=== PATIENT | male | born 1995 | race Caucasian/White ===

== ENCOUNTER 2020-04-09 06:24 | Day surgery (SDC) | payer OTHER ==
[~2020-04-09] VITALS: Ht 177.8 cm; Wt 94.8 kg
[2020-04-09] MEDS ORDERED: LR 1,000 ML IV ONE (07:00)
[2020-04-09] MEDS ORDERED: CIPRODEX OTIC SUSP 7.5ML As Ordered ONE (08:12)
[2020-04-09] MEDS ORDERED: LIDOCAINE W/EPINEPHRINE 1% 20ML VIAL As Ordered ONE (08:13)
[2020-04-09] MEDS ORDERED: EPINEPHrine 1MG/ML INJ 30ML MD-VIAL As Ordered ONE (08:13)
[2020-04-09] MEDS ORDERED: METHYLENE BLUE 0.5% (5MG/ML) 10 ML AMP (PROVAYBLUE) As Ordered ONE (08:13)
[2020-04-09] MEDS ORDERED: fentaNYL 250 MCG/5 ML INJECTION (J3010) As Ordered ONE (08:26)
[2020-04-09] MEDS ORDERED: ROCURONIUM BROMIDE 50 MG/5 ML VIAL As Ordered ONE (08:26)
[2020-04-09] MEDS ORDERED: MIDAZOLAM INJ 2MG/2ML VIAL (J2250 PER 1MG) As Ordered ONE (08:26)
[2020-04-09] MEDS ORDERED: propofoL 200 MG/20 ML VIAL As Ordered ONE (08:26)
[2020-04-09] MEDS ORDERED: dexameTHASONE 4 MG/ML 1ML VIAL (J1100 PER 1MG) As Ordered ONE (08:26)
[2020-04-09] MEDS ORDERED: LIDOCAINE 2% 100MG/5ML SDV (FOR ANES.) As Ordered ONE (08:26)
[2020-04-09] MEDS ORDERED: ACETAMINOPHEN 1000MG 100ML IV BTL (OFIRMEV) (J0131 PER 10MG) As Ordered ONE (09:26)
[2020-04-09] MEDS ORDERED: SUGAMMADEX SODIUM 500 MG/5 ML VIAL (BRIDION) As Ordered ONE (09:26)
[2020-04-09] MEDS ORDERED: ePHEDrine SULFATE 25 MG/5 ML(5MG/ML) SYRINGE As Ordered ONE (09:27)
[2020-04-09] MEDS ORDERED: HYDROmorphone HCL 2 MG/ML 1ML VIAL (J1170) As Ordered ONE (09:48)
[2020-04-09] MEDS ORDERED: KETOROLAC 60MG 2ML VIAL As Ordered ONE (09:52)
[2020-04-09] MEDS ORDERED: oxyCODONE 5MG TAB PO PRN (11:00)
[2020-04-09] MEDS ORDERED: ONDANSETRON 4MG/2ML VIAL IV PRN (11:00)
[2020-04-09] MEDS ORDERED: ACETAMINOPH W/CODEINE #3 TAB UD PO PRN (11:00)
[2020-04-09] MEDS ORDERED: LR 1,000 ML IV SCH ×2 (11:00)
[2020-04-09] MEDS: fentaNYL 100 MCG/2 ML INJECTION (J3010) IV PRN ×2 (11:29→11:34)
--- NOTE | 2020-04-09 11:29 | RO ---
OPERATIVE NOTE DATE OF OPERATION: 04/09/2020 PREOPERATIVE DIAGNOSIS: Chronic right tympanic membrane perforation. POSTOPERATIVE DIAGNOSIS: Chronic right tympanic membrane perforation. OPERATIVE PROCEDURE: Right tympanoplasty. FINDINGS: There was a moderate sized anterior perforation of the right tympanic membrane. It was clean and dry. The procedure went well. PROCEDURE IN DETAIL: Under general anesthesia and the patient intubated, the patient was prepped and draped in the usual manner. I infiltrated the ear with lidocaine and epinephrine. I cleaned the ear with Betadine and saline. I made a transcanal incision posteriorly and then radial incisions laterally. I reflected the canal wall skin posterolateral. I made a post-auricular incision. I dissected down into the canal and reflected the skin anteriorly. I harvested temporalis fascia as a graft and prepared that. Then, I made an incision anteriorly because I could not see the anterior part of the tympanic membrane perforation, and along the annulus, then reflected the skin laterally anteriorly. Once this was done, then I used the drill and drilled down the anterior buttress so that I could see the canal and total tympanic membrane anteriorly and inferiorly. Once this was done, then I stripped the epithelium off of the tympanic membrane. I put a bit of Gelfoam in the middle ear space. I cut the graft to the appropriate size and placed it over the tympanic membrane. I placed around, underneath, the handle of the malleolus. I positioned it. Then, I put some Gelfoam anteriorly and then put silastic sheeting on top of this. I then put more Gelfoam on top of this. I returned the canal wall skin to its usual position. This is both anteriorly and posteriorly. I put some iodoform gauze to extend the canal wall open. After that was done, then I closed the post-auricular incision with 3-0 chromic and 3-0 Prolene. The patient tolerated the procedure well. The wound was dressed. The patient was extubated and transferred to the recovery room in excellent condition.
[2020-04-09] MEDS ORDERED: METOCLOPRAMIDE INJ 10MG/2ML VIAL (J2765 PER 1) As Ordered ONE (11:41)
[2020-04-09 12:00] VITALS: BP 139/73
[2020-04-09] MEDS ORDERED: METOCLOPRAMIDE INJ 10MG/2ML VIAL (J2765 PER 1) IV PRN (12:00)
== END 2020-04-09 12:57 | disposition home or self-care (01) ==
LOC: M SDC 06:24
PROVIDERS: ATTEND Otolaryngology
DX: H72.91 Unspecified perforation of tympanic membrane, right ear (principal)
CPT/HCPCS: 69620; J0131; J1100; J1170; J2250; J2405; J2765; J3010; Q9968